=== PATIENT | female | born 1950 | race Caucasian/White ===

== ENCOUNTER 2023-10-01 10:01 | Outpatient (CLI) | payer MEDICARE, OTHER | END 2023-10-01 10:02 | disposition home or self-care (01) | LOC: CSHLAB 10:01 | PROVIDERS: ATTEND Internal Medicine Cardiovascular Disease | DX: Z01.818 Encounter for other preprocedural examination (principal); Z86.711 Personal history of pulmonary embolism; Z86.718 Personal history of other venous thrombosis and embolism | CPT/HCPCS: 71046; 80048; 85027; 85610; 85730; 86850; 86900; 86901; 93005; 93010 ==

== ENCOUNTER 2024-08-16 11:54 | Outpatient (CLI) | payer MEDICARE, OTHER | END 2024-08-16 11:55 | disposition home or self-care (01) | LOC: CSHMAMMO 11:54 | PROVIDERS: ATTEND Family Medicine | DX: Z12.31 Encounter for screening mammogram for malignant neoplasm of breast (principal); N63.10 Unspecified lump in the right breast, unspecified quadrant; Z80.3 Family history of malignant neoplasm of breast; Z98.82 Breast implant status; Z91.89 Other specified personal risk factors, not elsewhere classified; Z98.890 Other specified postprocedural states | CPT/HCPCS: 77063; 77067 ==

== ENCOUNTER 2025-05-16 09:33 | Inpatient (IN) | payer MEDICARE, OTHER ==
[2025-05-16 10:29] LABS: #Basophils 0.08 10x3/uL (0.0-0.2); #Eosinophils 0.41 10x3/uL (0.0-0.5); #Monocytes 0.50 10x3/uL (0.0-1.1); #Neutrophils 5.57 10x3/uL (1.5-8.4); %Basophils 1.0 % (0.0-2.0); %Eosinophils 5.0 % (0.0-6.0); %Lymphocytes 19.8 % (18.0-47.0); %Monocytes 6.1 % (0.0-10.0); %Neutrophils 67.7 % (40.0-75.0); Hematocrit 49.5 % (34.9-44.5); Hemoglobin 17.0 g/dL (12.0-15.5); Mean Corpuscular Hemoglobin 29.5 pg (27.0-33.0); Mean Corpuscular Volume 85.9 fL (81.6-98.3); Platelet Count 267 10x3/uL (150-450); Red Blood Cell (RBC) Count 5.76 10x6/uL (3.90-5.03); White Blood Cell (WBC) Count 8.22 10x3/uL (3.5-10.5)
[2025-05-16 10:46] LABS: INR-International Normal Ratio 2.3; PTT 41.0 sec (22.0-33.0); Prothrombin Time 22.8 sec (9.5-12.1)
[2025-05-16 10:51] LABS: ALT (SGPT) 18 U/L (Less than 34); AST (SGOT) 20 U/L (11-34); Albumin 4.6 g/dL (3.1-4.5); Alkaline Phosphatase 88 U/L (40-110); Anion Gap 16 mmol/L (10-20); BUN (Urea Nitrogen) 12 mg/dL (9.8-20.1); Bilirubin, Total 0.8 mg/dL (0.3-1.2); Calc. Creatinine Clearance 0 mL/min (70-130); Calcium 9.9 mg/dL (7.8-10.44); Carbon Dioxide 23 mmol/L (23-31); Chloride 105 mmol/L (98-107); Globulin 3.5 g/dL (2.4-3.5); Glucose 154 mg/dL (83-110); Potassium 4.3 mmol/L (3.5-5.1); Sodium 140 mmol/L (136-145)
[2025-05-16 11:19] LABS: Glucose, Urine (Dipstick) Normal (Negative); Leukocyte Negative (Negative); Protein, Urine (Dipstick) Negative (Neg-Trace); Specific Gravity, Urine 1.010 (1.005-1.030)
[2025-05-16 11:33] LABS: Bacteria/HPF 1+ HPF (None Seen); CAUTI Indications for Culture Dysuria,urgency,freq; RBC/HPF None Seen HPF (0-3); WBC/HPF 0-3 HPF (0-3)
[2025-05-16 11:34] LABS: Urine Culture Reflex No No
[2025-05-16] MEDS ORDERED: Iopamidol 370 76% 100 ML VIAL ONE (13:48)
[2025-05-16] MEDS ORDERED: Melatonin 3 MG TAB PO PRN (13:50)
[2025-05-16] MEDS ORDERED: Ondansetron PF 4 MG/2 ML Vial IVP PRN (13:50)
[2025-05-16] MEDS ORDERED: Bisacodyl 10 MG SUPP PR PRN (13:50)
[2025-05-16] MEDS ORDERED: Senokot S 8.6-50 MG TAB PO PRN (13:50)
[2025-05-16] MEDS ORDERED: Acetaminophen 325 MG TAB PO PRN (13:50)
[2025-05-16 14:26] LABS: Hemoglobin 15.9 g/dL (12.0-15.5)
[2025-05-16] MEDS ORDERED: GoLYTELY 4,000 ml Bottle PO SCH (16:30)
[2025-05-16 16:31] VITALS: BMI 38.2
[2025-05-16] MEDS ORDERED: HYDROcodone/Acetaminophen 7.5/325 mg Tablet PO PRN (18:44)
[2025-05-16 22:29] LABS: Hematocrit 43.9 % (34.9-44.5); Hemoglobin 15.4 g/dL (12.0-15.5)
[2025-05-17 05:33] LABS: Hematocrit 46.1 % (34.9-44.5); Hemoglobin 16.0 g/dL (12.0-15.5)
[2025-05-17 05:42] LABS: INR-International Normal Ratio 2.0; Prothrombin Time 20.6 sec (9.5-12.1)
[2025-05-17] MEDS: Losartan 50 MG TAB PO SCH (09:24)
[2025-05-17 14:09] LABS: Hematocrit 42.4 % (34.9-44.5)
[2025-05-17] MEDS: Calcium Carbonate 500 MG ChewTAB PO PRN (23:16)
[2025-05-18 05:15] LABS: Hematocrit 43.3 % (34.9-44.5); Hemoglobin 15.1 g/dL (12.0-15.5)
[2025-05-18 05:24] LABS: INR-International Normal Ratio 1.5; Prothrombin Time 15.9 sec (9.5-12.1)
[2025-05-18] MEDS: GoLYTELY 4,000 ml Bottle PO SCH (07:57)
[2025-05-18] MEDS ORDERED: PROPOFOL 20 ML ONE ×2 (17:10)
[2025-05-18] MEDS: Hydrocortisone Acetate 25 MG Suppository PR SCH (20:45)
[2025-05-19 05:37] LABS: #Basophils 0.05 10x3/uL (0.0-0.2); #Eosinophils 0.20 10x3/uL (0.0-0.5); #Monocytes 0.60 10x3/uL (0.0-1.1); #Neutrophils 6.07 10x3/uL (1.5-8.4); %Basophils 0.6 % (0.0-2.0); %Eosinophils 2.2 % (0.0-6.0); %Lymphocytes 22.4 % (18.0-47.0); %Monocytes 6.7 % (0.0-10.0); %Neutrophils 67.8 % (40.0-75.0); Hematocrit 43.3 % (34.9-44.5); Hemoglobin 14.8 g/dL (12.0-15.5); Mean Corpuscular Hemoglobin 29.7 pg (27.0-33.0); Mean Corpuscular Volume 86.9 fL (81.6-98.3); Platelet Count 239 10x3/uL (150-450); Red Blood Cell (RBC) Count 4.98 10x6/uL (3.90-5.03); White Blood Cell (WBC) Count 8.96 10x3/uL (3.5-10.5)
[2025-05-19 05:47] LABS: Anion Gap 15 mmol/L (10-20); BUN (Urea Nitrogen) 13 mg/dL (9.8-20.1); Calc. Creatinine Clearance 104 mL/min (70-130); Calcium 9.0 mg/dL (7.8-10.44); Carbon Dioxide 25 mmol/L (23-31); Chloride 107 mmol/L (98-107); Glucose 142 mg/dL (83-110); Potassium 4.1 mmol/L (3.5-5.1); Sodium 143 mmol/L (136-145)
[2025-05-19 08:47] VITALS: BP 136/76; TEMP 97.6
== END 2025-05-19 09:52 | disposition home or self-care (01) | DRG 393 ==
LOC: CSHERS 09:33 → CSHTELE 13:46
PROVIDERS: ADMIT Internal Medicine; ATTEND Family Medicine
PROC: 0DBN8ZX Excision of Sigmoid Colon, Via Natural or Artificial Opening Endoscopic, Diagnostic (ICD-10-PCS; principal; 2025-05-19)
DX: K64.8 Other hemorrhoids (principal); K57.33 Diverticulitis of large intestine without perforation or abscess with bleeding; E78.5 Hyperlipidemia, unspecified; E03.9 Hypothyroidism, unspecified; F41.1 Generalized anxiety disorder; I10 Essential (primary) hypertension; Z86.718 Personal history of other venous thrombosis and embolism; Z79.01 Long term (current) use of anticoagulants; Z86.711 Personal history of pulmonary embolism; Z88.8 Allergy status to other drugs, medicaments and biological substances; Z88.2 Allergy status to sulfonamides; Z88.0 Allergy status to penicillin
CPT/HCPCS: 36415; 36416; 74174; 80048; 80053; 81001; 82274; 83605; 85014; 85018; 85025; 85610; 85730; 86850; 86900; 86901; 88305; C1889; J2704; Q9967